=== PATIENT | female | born 1945 | race Caucasian/White ===

== ENCOUNTER 2017-01-26 07:33 | Emergency (ER) | payer MEDICARE, OTHER ==
[2017-01-26 08:02] VITALS: BP 161/70
--- NOTE | 2017-01-26 09:41 | CT ---
Head CT Technique: Multiple axial sections through the brain were obtained. Intravenous contrast was not utilized. Comparison: No previous intracranial imaging. Findings: Ventricles along with basal cisterns and sulci over the convexities are within normal limits for the patient's age. No abnormal parenchymal densities are seen. No evidence of intracranial hemorrhage. No midline shift or mass effect is seen. Mild atherosclerotic calcification is seen within the vertebral vessels and within the carotid siphon. Bone window settings were reviewed which shows no discrete calvarial abnormality. Visualized sinuses are clear. Impression: 1. Minimal senescent change. No acute intracranial abnormality is identified on noncontrast head CT study. Diagnostic code #1
--- NOTE | 2017-01-26 09:45 | CT ---
Maxillofacial CT Technique: Multiple axial sections were obtained through the facial structures. Intravenous contrast was not utilized. Findings: Paranasal sinuses are clear. No mucosal thickening or air-fluid levels are seen within the sinuses. Mastoid sinuses and middle ear cavities are also clear. Right and left globes are symmetric. No bony abnormality is seen. Impression: 1. No abnormality identified on maxillofacial CT exam. Diagnostic code #1
--- NOTE | 2017-01-26 10:33 | EDM.PDOC ---
ED HPI EYE COMPLAINT - General Chief Complaint: Eye Problems Stated Complaint: SENT BY DR. WINSLOW FOR RED EYE Time Seen by Provider: 01/26/17 08:07 Source: Reports: Patient History Limitations: Reports: No limitations - History of Present Illness INITIAL COMMENTS - FREE TEXT/NARRATIVE: The patient presents with a red left eye and left ear pain. She says this has been going on for a few weeks. She went to the walk in clinic at [place] on Thursday and she was put on an antibiotic. She was told to return if she is not better. She saw Dr Winslow and she was partially concerned about temporal arteritis. The patient has had decreased appetite, fever and chills at times. She has no cough. She did have congestion and a headache on the left side. Dr Winslow felt she had a sinus infection and ear infection. She denies any numbness or weakness. Timing/Duration: Reports: Week(s): Location: left eye Severity: mild Improves with: Reports: None Worsens with: Reports: None Associated Symptoms (Eye): Reports: orbital redness (Mild). 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: - Past Surgical History GI Surgical History: Reports: Colonoscopy Female Surgical History: Reports: Hysterectomy Social & Family History - Tobacco Use Smoking Status *Q: Never Smoker - Caffeine Use Caffeine Use: Reports: Coffee - Recreational Drug Use Recreational Drug Use: No ED ROS GENERAL - Review of Systems Review Of Systems: See Below Constitutional: Reports: fever, chills HEENT: Reports: Other (Red left eye) Respiratory: Reports: No Symptoms Cardiovascular: Reports: No symptoms Endocrine: Reports: no symptoms GI/Abdominal: Reports: No symptoms : Reports: no symptoms Musculoskeletal: Reports: no symptoms Skin: Reports: no symptoms ED EXAM GENERAL W FULL EYE - Physical Exam Exam: See Below Exam Limited By: No limitations General Appearance: alert, no apparent distress Eye Exam: left eye: conjunctival injection (Mild), bilateral eye: EOMI, PERRL Visual acuity (R) 20/: 30 Visual acuity (L) 20/: 30 With Correction: Yes Eyelids: bilateral: normal appearance Conjunctiva & Sclera: left: injected (Mild) Cornea Exam: bilateral: normal appearance Extraocular Movements: bilateral: intact Pupillary Size: bilateral: 4 mm Pupillary Reaction: bilateral: brisk Ears: normal external exam Nose: normal inspection Head: atraumatic, normocephalic Neck: normal inspection Respiratory/Chest: no respiratory distress, lungs clear, normal breath sounds Cardiovascular: regular rate, rhythm, no edema, no murmur GI/Abdominal: soft, non tender, no organomegaly, no mass Extremities: normal inspection Neurological: alert, oriented, no motor/sensory deficits Course - Vital Signs Last Recorded V/S: Last Vital Signs Temp 97.1 F 01/26/17 07:56 Pulse 71 01/26/17 07:56 Resp 12 01/26/17 07:56 BP 161/70 H 01/26/17 07:56 Pulse Ox 100 01/26/17 07:56 - Orders/Labs/Meds Orders: Active Orders 24 hr Category Date Time Status Cardiac Monitoring [RC] . DIRECTED Care 01/26/17 08:19 Active Labs: Laboratory Tests 01/26/17 01/26/17 01/26/17 Range/Units 08:35 08:35 08:35 WBC 7.21 (3.98-10.04) K/mm3 RBC 4.87 (3.98-5.22) M/mm3 Hgb 14.6 (11.2-15.7) gm/L Hct 42.3 (34.1-44.9) % MCV 86.9 (79.4-94.8) fl MCH 30.0 (25.6-32.2) pg MCHC 34.5 (32.2-35.5) g/dl RDW Std Deviation 40.3 (36.4-46.3) fL Plt Count 409 H (182-369) K/mm3 MPV 9.3 L (9.4-12.3) fl Neut % (Auto) 58.3 (34.0-71.1) % Lymph % (Auto) 34.3 (19.3-51.7) % [place] % (Auto) 6.1 (4.7-12.5) % Eos % (Auto) 0.8 (0.7-5.8) Baso % (Auto) 0.4 (0.1-1.2) % Neut # (Auto) 4.20 (1.56-6.13) K/mm3 Lymph # (Auto) 2.47 (1.18-3.74) K/mm3 [place] # (Auto) 0.44 H (0.24-0.36) K/mm3 Eos # (Auto) 0.06 (0.04-0.36) K/mm3 Baso # (Auto) 0.03 (0.01-0.08) K/mm3 ESR 39 H (0-20) mm/hr Sodium 137 (136-145) mEq/L Potassium 3.7 (3.5-5.1) mEq/L Chloride 102 (98-107) mEq/L Carbon Dioxide 24 (21-32) mEq/L Anion Gap 14.7 (5-15) BUN 20 H (7-18) mg/dL Creatinine 1.0 (0.55-1.02) mg/dL Est Cr Clr Drug Dosing 39.63 mL/min Estimated GFR (MDRD) 54 (>60) mL/min BUN/Creatinine Ratio 20.0 H (14-18) Glucose 151 H (83-115) mg/dL Calcium 9.3 (8.5-10.1) mg/dL Total Bilirubin 0.4 (0.2-1.0) mg/dL AST 20 (15-37) U/L ALT 26 (14-59) U/L Alkaline Phosphatase 117 H (46-116) U/L C-Reactive Protein 1.3 H* (<1.0) mg/dL Total Protein 8.1 (6.4-8.2) g/dl Albumin 3.9 (3.4-5.0) g/dl Globulin 4.2 gm/dL Albumin/Globulin Ratio 0.9 L (1-2) - Re-Assessments/Exams Free Text/Narrative Re-Assessment/Exam: 01/26/17 10:[address] of her head and sinuses. They were both normal. Her WBC and red blood cells were normal. Her platelets were a little elevated at 409. Her CRP was elevated slightly to 1.3. Her ESR was elevated to 39. She says she is feeling better. At this time I do not think she has temporal arteritis. She did have a similar episode back in October. Given that information it may be possible. I will have her follow up with Lucy Luna on at 8am to recheck her ESR. I will have her continue her antibiotics until then. I will have her take a probiotic because she does have some diarrhea with the antibiotic. She normally sees P[facility] but she is out for awhile. Departure - Departure Time of Disposition: 10:40 Disposition: Home, Self-Care 01 Condition: good Clinical Impression: Redness of eye, left Headache Qualifiers: Headache type: unspecified Headache chronicity pattern: acute headache Intractability: not intractable Qualified Code(s): R51 - Headache Referrals: Lucy Luna PA-C [Physician Pres[facility] Assistant Director] - ( the at 8am) Forms: ED Department Discharge Additional Instructions: Keep taking the antibiotics until gone. Take a probiotic such as activia to help with the diarrhea. Take tylenol or motrin for any headache. Please return if you are worse such as more of a headache or vision changes. Follow up with Lucy Luna on for repeat labs. Pau is out for a few weeks. - My Orders Last 24 Hours: My Active Orders 01/26/17 08:19 Cardiac Monitoring [RC] . DIRECTED - Assessment/Plan Last 24 Hours: My Active Orders 01/26/17 08:19 Cardiac Monitoring [RC] . DIRECTED
== END 2017-01-26 11:13 | disposition home or self-care (01) ==
LOC: JD.ED 07:33 → SUPCPDRO 07:33 → JD.ED 11:13
DX: H57.8 Other specified disorders of eye and adnexa (principal); R51 Headache; Z88.8 Allergy status to other drugs, medicaments and biological substances; Z79.82 Long term (current) use of aspirin; Z79.899 Other long term (current) drug therapy; H35.30 Unspecified macular degeneration; I10 Essential (primary) hypertension; E78.00 Pure hypercholesterolemia, unspecified
CPT/HCPCS: 36415; 70450; 70450-26; 70486; 70486-26; 80053; 85025; 85652; 86140; 99283; 99284-25

== ENCOUNTER 2022-09-03 09:36 | Emergency (ER) | payer MEDICARE, OTHER ==
[2022-09-03 10:41] VITALS: BP 175/62; PULSE 73
[2022-09-03] MEDS ORDERED: Sodium Chloride 0.9% 10 ML Syringe FLUSH PRN ×2 (11:24→13:04)
[2022-09-03] MEDS ORDERED: Ondansetron 4 MG/2 ML SDV IVPUSH ONE (11:27)
[2022-09-03] MEDS ORDERED: Sodium Chloride 0.9% 1,000 ML IV SCH (11:30)
[2022-09-03 12:56] LABS: ESTIMATED GFR 75 mL/min (>60)
[2022-09-03] MEDS ORDERED: Iopamidol 612 MG/ML 100 ML Bottle IVPUSH ONE (13:04)
[2022-09-03] MEDS ORDERED: Sodium Chloride 3% 100 ML IV SCH ×2 (13:45→17:30)
[2022-09-03] MEDS: Potassium Chloride 10 MEQ in Premix Bag 1 BAG IV SCH ×3 (14:05→18:13)
== END 2022-09-03 18:30 ==
LOC: JD.ED 09:36
DX: E87.1 Hypo-osmolality and hyponatremia (principal); E87.6 Hypokalemia; E78.00 Pure hypercholesterolemia, unspecified; I10 Essential (primary) hypertension; Z79.82 Long term (current) use of aspirin; Z79.899 Other long term (current) drug therapy; Z88.8 Allergy status to other drugs, medicaments and biological substances
CPT/HCPCS: 36415; 71045; 74177; 80053; 81003; 83690; 83735; 83930; 83935; 84295; 84300; 85025; 86140; 96361; 96365; 96366; 96375; 99285; J2405; J3480; J3490; J7030; J7131; Q9967

== ENCOUNTER 2022-11-29 15:15 | Emergency (ER) | payer MEDICARE, OTHER ==
[2022-11-29 16:42] LABS: ESTIMATED GFR 65 mL/min (>60)
[2022-11-29 18:33] LABS: CORONAVIRUS COVID-19 NAA NEGATIVE (NEGATIVE)
[2022-11-29 18:52] VITALS: BP 160/57; PULSE 65
== END 2022-11-29 18:45 | disposition home or self-care (01) ==
LOC: JD.ED 15:15
DX: R07.9 Chest pain, unspecified (principal); E78.00 Pure hypercholesterolemia, unspecified; I10 Essential (primary) hypertension; Z86.16 Personal history of COVID-19; Z88.8 Allergy status to other drugs, medicaments and biological substances; Z79.82 Long term (current) use of aspirin; Z79.899 Other long term (current) drug therapy; Z20.822 Contact with and (suspected) exposure to COVID-19
CPT/HCPCS: 0240U; 36415; 71045; 80053; 81003; 83605; 83690; 83735; 84484; 85025; 99285; 93010; 99284

== ENCOUNTER 2023-03-05 08:03 | Day surgery (SDC) | payer MEDICARE, OTHER ==
[~2023-03-05 08:03] MED LIST: Cefuroxime 10 MG/ML SYRINGE EYERT SCH; Lidocaine 1% PF 2 ML SDV INJECT SCH; Pilocarpine 4% Ophth Soln 15 ML Bot EYERT SCH
[2023-03-05] MEDS: Polymyxin B/Trimethoprim 10 ML Bottle EYERT SCH ×3 (08:18→10:16)
[2023-03-05] MEDS: Brimonidine 0.2% Ophth Soln 5 ML Bottle EYERT SCH ×2 (08:23→10:16)
[2023-03-05] MEDS: Phenylephrine 2.5% Ophth Soln 2 ML Bot EYERT SCH ×7 (08:26→09:54)
[2023-03-05] MEDS: Tropicamide 1% Ophth Soln 15 ML Bottle EYERT SCH ×3 (08:31→08:52)
[2023-03-05] MEDS: Tetracaine HCl/PF 0.5% 4 ML Bottle EYEBOTH SCH ×4 (09:17→10:03)
[2023-03-05] MEDS ORDERED: Ondansetron 4 MG/2 ML SDV IVPUSH PRN (09:24)
[2023-03-05 10:30] VITALS: BP 176/65; PULSE 70
== END 2023-03-05 10:32 ==
LOC: JD.SDS 08:03
PROVIDERS: ATTEND Ophthalmology
DX: H25.813 Combined forms of age-related cataract, bilateral (principal); H35.363 Drusen (degenerative) of macula, bilateral; H35.3134 Nonexudative age-related macular degeneration, bilateral, advanced atrophic with subfoveal involvement; H18.593 Other hereditary corneal dystrophies, bilateral; H53.8 Other visual disturbances; E78.00 Pure hypercholesterolemia, unspecified; I10 Essential (primary) hypertension; Z79.899 Other long term (current) drug therapy
CPT/HCPCS: 66982; A9270; C1780; J0697; 00142; 99100; J3490

== ENCOUNTER 2023-04-09 06:53 | Day surgery (SDC) | payer MEDICARE, OTHER ==
[2023-04-09] MEDS: Polymyxin B/Trimethoprim 10 ML Bottle EYELF SCH ×4 (07:06→08:50)
[2023-04-09] MEDS: Brimonidine 0.2% Ophth Soln 5 ML Bottle EYELF SCH ×4 (07:12→08:50)
[2023-04-09] MEDS: Phenylephrine 2.5% Opth Drops 10 mL EYELF SCH ×5 (07:16→08:15)
[2023-04-09] MEDS ORDERED: Ondansetron 4 MG/2 ML SDV IVPUSH PRN (07:17)
[2023-04-09] MEDS: Tropicamide 1% Ophth Soln 15 ML Bottle EYELF SCH ×4 (07:20→07:55)
[2023-04-09] MEDS: Lidocaine 1% PF 2 ML SDV INJECT SCH ×2 (07:51→08:29)
[2023-04-09] MEDS: Cefuroxime 10 MG/ML SYRINGE EYELF SCH ×2 (07:52→08:49)
[2023-04-09] MEDS: Tetracaine HCl/PF 0.5% 4 ML Bottle EYEBOTH SCH ×5 (07:52→08:30)
[2023-04-09] MEDS: Pilocarpine 4% Ophth Soln 15 ML Bot EYELF SCH ×2 (07:52→08:50)
[2023-04-09 09:13] VITALS: BP 158/41; PULSE 63
== END 2023-04-09 09:08 | disposition home or self-care (01) ==
LOC: JD.SDS 06:53
PROVIDERS: ATTEND Ophthalmology
DX: E11.36 Type 2 diabetes mellitus with diabetic cataract (principal); H25.812 Combined forms of age-related cataract, left eye; H21.81 Floppy iris syndrome; H21.42 Pupillary membranes, left eye; I10 Essential (primary) hypertension; E78.00 Pure hypercholesterolemia, unspecified; Z98.890 Other specified postprocedural states; Z88.8 Allergy status to other drugs, medicaments and biological substances; Z86.16 Personal history of COVID-19; Z79.899 Other long term (current) drug therapy; Z79.82 Long term (current) use of aspirin
CPT/HCPCS: A9270-GY; J0697; J3490; V2632

== ENCOUNTER 2023-06-24 16:41 | Emergency (ER) | payer MEDICARE, OTHER ==
[2023-06-24] MEDS ORDERED: LORazepam 1 MG Tab PO ONE (17:11)
[2023-06-24 17:35] LABS: BASOPHILS PERCENT AUTO 0.6 % (0.0-1.0); EOSINOPHILS ABSOLUTE AUTO 0.1 K/mm3 (0.0-0.4); EOSINOPHILS PERCENT AUTO 0.9 % (0.0-6.0); HEMATOCRIT 38.7 % (37.0-47.0); HEMOGLOBIN 13.2 gm/dl (12.0-16.0); IMMATURE GRAN ABSOLUTE AUTO 0.02 K/mm3 (0.00-0.05); IMMATURE GRAN PERCENT AUTO 0.3 % (0.0-0.4); LYMPHOCYTES ABSOLUTE AUTO 2.3 K/mm3 (1.0-4.8); LYMPHOCYTES PERCENT AUTO 33.9 % (24.0-44.0); MEAN CORPUSCULAR HEMOGLOBIN 29.5 pg (28.0-32.0); MEAN CORPUSCULAR HGB CONC 34.1 g/dl (32.0-36.0); MEAN CORPUSCULAR VOLUME 86.4 fl (83.0-99.0); MEAN PLATELET VOLUME 9.1 fl (9.4-12.3); MONOCYTES ABSOLUTE AUTO 0.5 K/mm3 (0.0-0.8); MONOCYTES PERCENT AUTO 7.8 % (0.0-8.0); NEUTROPHILS ABSOLUTE AUTO 3.8 K/mm3 (1.8-7.7); NEUTROPHILS PERCENT AUTO 56.5 % (41.0-71.0); PLATELET COUNT,PLT 394 K/mm3 (150-400); RED BLOOD CELL COUNT 4.48 M/mm3 (4.10-5.30); WHITE BLOOD CELL COUNT,WBC 6.76 K/mm3 (3.9-11.3)
[2023-06-24 17:50] LABS: APPEARANCE,URINE CLEAR (Clear); BILIRUBIN,URINE NEGATIVE (Negative); COLOR,URINE LIGHT YELLOW (Yellow); GLUCOSE,URINE NEGATIVE (Negative); KETONES,URINE NEGATIVE (Negative); LEUKOCYTE ESTERASE,URINE NEGATIVE (Negative); NITRITE,URINE NEGATIVE (Negative); OCCULT BLOOD,URINE TRACE-INTACT (Negative); PH,URINE 7.5 (5.0-8.0); PROTEIN,URINE NEGATIVE (Negative); UROBILINOGEN,URINE 0.2 (0.2-1.0)
[2023-06-24 17:57] LABS: BACTERIA,URINE MODERATE /hpf (FEW); BARBITURATE SCREEN,URINE NEGATIVE (CUTOFF=200); BENZODIAZEPINES SCREEN,URINE NEGATIVE (CUTOFF=150); BUPRENORPHINE SCREEN,URINE NEGATIVE (CUTOFF=10); METHADONE SCREEN, URINE NEGATIVE (CUTOFF=200); METHAMPHETAMINES SCREEN, URINE NEGATIVE (CUTOFF=500); MUCUS,URINE NOT SEEN /hpf (FEW); OXYCODONE SCREEN,URINE NEGATIVE (CUT0FF=100); PROPOXYPHENE SCREEN,URINE NEGATIVE (CUTOFF=300); THC SCREEN,URINE 20 NG/ML NEGATIVE (CUTOFF=50); WBC,URINE 0-5 /hpf (0-5)
[2023-06-24 17:59] LABS: AMPHETAMINES SCREEN, URINE NEGATIVE (CUTOFF=500)
[2023-06-24 18:08] LABS: A/G RATIO 0.9 (1-2); ALANINE AMINOTRANSFERASE,ALT 60 U/L (14-59); ALBUMIN 3.4 g/dl (3.4-5.0); ALKALINE PHOSPHATASE 85 U/L (46-116); ANION GAP 11.5 (5-15); ASPARTATE AMNIOTRANSFERASE,AST 23 U/L (15-37); BILIRUBIN TOTAL 0.6 mg/dL (0.2-1.0); BLOOD UREA NITROGEN,BUN 11 mg/dL (7-18); BUN/CREATININE RATIO 18.3 (14-18); C-REACTIVE PROTEIN <0.2 mg/dL (<1.0); CARBON DIOXIDE,CO2 27 mEq/L (21-32); CHLORIDE,CL 104 mEq/L (98-107); CREATININE 0.6 mg/dL (0.55-1.02); ESTIMATED GFR 91 mL/min (>60); GLUCOSE RANDOM 103 mg/dL (70-99); MAGNESIUM 2.1 mg/dL (1.8-2.4); POTASSIUM,K 3.5 mEq/L (3.5-5.1); PROTEIN TOTAL,TP 7.1 g/dl (6.4-8.2); SODIUM,NA 139 mEq/L (136-145); TROPONIN I HIGH SENSITIVITY 8 pg/mL (<=51)
[2023-06-24 18:10] LABS: ACETAMINOPHEN 0 ug/mL (10-30)
[2023-06-25 00:01] VITALS: BP 134/53; PULSE 84
== END 2023-06-24 20:25 | disposition home or self-care (01) ==
LOC: JD.ED 16:41
DX: G31.09 Other frontotemporal neurocognitive disorder (principal); F02.80 Dementia in other diseases classified elsewhere, unspecified severity, without behavioral disturbance, psychotic disturbance, mood disturbance, and anxiety; R45.86 Emotional lability; E78.00 Pure hypercholesterolemia, unspecified; I10 Essential (primary) hypertension; Z86.16 Personal history of COVID-19; Z88.8 Allergy status to other drugs, medicaments and biological substances; Z79.82 Long term (current) use of aspirin; Z79.899 Other long term (current) drug therapy
CPT/HCPCS: 36415; 74018; 80053; 80143; 80179; 80306; 80307; 81001; 83735; 84443; 84484; 85025; 86140; 99283; A9270; 99284

== ENCOUNTER 2023-08-05 18:31 | Emergency (ER) | payer MEDICARE, OTHER ==
[2023-08-05] MEDS ORDERED: LORazepam 1 MG Tab PO ONE (18:54)
[2023-08-05 21:13] VITALS: BP 117/68; PULSE 57
== END 2023-08-05 20:38 | disposition home or self-care (01) ==
LOC: JD.ED 18:31
DX: F41.9 Anxiety disorder, unspecified (principal); I10 Essential (primary) hypertension; E78.00 Pure hypercholesterolemia, unspecified; Z86.16 Personal history of COVID-19; Z88.8 Allergy status to other drugs, medicaments and biological substances; Z79.899 Other long term (current) drug therapy; Z79.82 Long term (current) use of aspirin
CPT/HCPCS: 99284; A9270; 99283